=== PATIENT | female | born 1940 | race Caucasian/White ===

== ENCOUNTER 2017-10-25 21:42 | Inpatient (IN) | payer OTHER, MEDICARE ==
[~2017-10-25] VITALS: Ht 167.6 cm; Wt 103.0 kg
[2017-10-25 21:00] VITALS: BP 177/71
--- NOTE | 2017-10-25 22:14 | NUR ---
PT BIBFAMILY C/O MIDSTERNAL CP X COUPLE HRS W/ HIGH SBP 180 X FEW DAYS. PT AOX3 TRINIDADIAN SPEAKING, RR EVEN AND UNLABORED NO SOB NOTED. NAD NOTED. NO NVD AT THIS TIME. PT NOT DIAPHORETIC. PT GOWNED AND PLACED ON MONITOR WAITING FOR MD VOGT.
--- NOTE | 2017-10-25 22:15 | NUR ---
DR. LUCAS AT BEDSIDE FOR EVAL.
--- NOTE | 2017-10-25 22:16 | NUR ---
called for tele bed
[2017-10-25] MEDS ORDERED: NITROGLYCERIN 0.4 MG/TAB BOTTLE ONE (22:17)
[2017-10-25] MEDS ORDERED: ASPIRIN 325 MG TABLET ONE (22:18)
--- NOTE | 2017-10-25 22:25 | NUR ---
2ND TAB NITRO SL GIVEN FOR CP, BP 175/78 HR 58
[2017-10-25] MEDS ORDERED: NITROGLYCERIN 0.4 MG/TAB BOTTLE SL ONE (22:30)
[2017-10-25] MEDS ORDERED: ASPIRIN 325 MG TABLET PO ONE (22:30)
--- NOTE | 2017-10-25 22:30 | NUR ---
3RD TAB NITRO SL GIVEN FOR CP, BP 160/69 HR 60
[2017-10-25 22:31] LABS: BASOPHILS % (AUTO) 0.1 % (0.0-2.0); EOSINOPHILS % (AUTO) 0.8 % (0.0-6.0); HEMATOCRIT 36 % (33-45); HEMOGLOBIN 12.1 g/dL (11.5-14.8); LYMPHOCYTES # (AUTO) 1.4 /CMM (0.8-4.8); LYMPHOCYTES % (AUTO) 28.3 % (20.0-44.0); MEAN CORPUSCULAR HEMOGLOBIN 31 PG (26.0-33.0); MEAN CORPUSCULAR HGB CONC 34 g/dl (31.0-36.0); MEAN CORPUSCULAR VOLUME 92 fL (82-100); MONOCYTES # (AUTO) 0.2 /CMM (0.1-1.30); MONOCYTES % (AUTO) 4.7 % (2.0-12.0); NEUTROPHILS # (AUTO) 3.4 /CMM (1.8-8.9); NEUTROPHILS % (AUTO) 66.1 % (43.0-81.0); PLATELET COUNT (AUTO) 208 /CMM (150-450); RDW COEFFICIENT OF VARIATION 13.9 (11.5-15.0); WHITE BLOOD COUNT (AUTO) 5.1 K/uL (4.3-11.0)
--- NOTE | 2017-10-25 22:35 | NUR ---
RADIOLOGY AT BEDSIDE FOR CXR
[2017-10-25 22:46] LABS: INR 1.04 (0.87-1.13); PROTHROMBIN TIME 10.8 SECS (9.5-12.7)
[2017-10-25 22:47] LABS: CALCIUM, SERUM 9.1 mg/dL (8.5-10.1); CARBON DIOXIDE 25 mmol/L (21-32); CHLORIDE 108 mmol/L (98-107); CREATININE 0.9 mg/dL (0.6-1.3); GLUCOSE 150 mg/dL (74-106); POTASSIUM 4.2 mmol/L (3.5-5.1); SODIUM SERUM 141 mmol/L (136-145); UREA NITROGEN, BLOOD 21 mg/dL (7-18)
[2017-10-25] MEDS ORDERED: ONDANSETRON HCL/PF 4 MG/2 ML VIAL ONE (22:49)
[2017-10-25 22:53] LABS: TROPONIN I 0.231 ng/mL (0.00-0.056)
--- NOTE | 2017-10-25 22:58 | NUR ---
PAGED DR MUSA, DIABETES MANAGER PANEL.
[2017-10-25] MEDS ORDERED: MORPHINE SULFATE INJ 4 MG/ML DISP.SYRIN ONE (22:59)
[2017-10-25] MEDS ORDERED: MORPHINE SULFATE INJ 4 MG/ML DISP.SYRIN IV ONE (23:00)
[2017-10-25] MEDS ORDERED: ONDANSETRON HCL/PF 4 MG/2 ML VIAL IV ONE (23:00)
--- NOTE | 2017-10-25 23:02 | NUR ---
RECEIVED IV MEDICATION MORPHONE 4 MG FROM JOSE PYXIS REMOVED BY RN KE KIM. DR LUCAS AWARE 6MG MORPHINE NOT AVAILABLE AT THIS TIME. PER DR. LUCAS TO GIVE IVP MORPHINE 4MG D/T LIMITED QUANTITY.
--- NOTE | 2017-10-25 23:17 | NUR ---
PT STATES NO CHEST PAIN AT THIS TIME.
--- NOTE | 2017-10-25 23:23 | NUR ---
REPORT GIVEN TO MERRICK CARRASCO. UNABLE TO INPUT MED RECON AT THIS TIME. ENDORSED TO ADMITTING RN.
[2017-10-25 23:30] VITALS: BP 177/71
[2017-10-25] MEDS ORDERED: ASPIRIN 81 MG TAB.CHEW PO SCH (23:30)
[2017-10-25] MEDS ORDERED: ONDANSETRON HCL/PF 4 MG/2 ML VIAL IVP PRN (23:30)
[2017-10-25] MEDS: METOPROLOL TARTRATE 25 MG TABLET PO SCH (23:30)
[2017-10-25] MEDS ORDERED: NITROGLYCERIN 0.4 MG/TAB BOTTLE SL PRN (23:30)
[2017-10-25] MEDS ORDERED: MORPHINE SULFATE INJ 2 MG/ML DISP.SYRIN IV PRN (23:30)
--- NOTE | 2017-10-25 23:30 | NUR ---
TELE/RN NOTES PT RECEIVED TO UNIT FROM ER VIA SUSI. PLACE ON 2L O2 VIA NC, BREATHING EVEN AND UNLABORED. DENIES CHEST PAIN AT THIS TIME. DAUGHTER HENRRY (HOME) [phone] (CELL) [phone] AND FAMILY FRIEND IVAN [phone] AT BEDSIDE. IV TO LAC PATENT AND INTACT. CITIZEN OF [place] AND [place]/SOME [place] SPEAKING. ORIENTED PT TO ROOM AND CALL LIGHT. SIDE RAILS UPX2. BED IN LOW/LOCKED POSITION AND CALL LIGHT IN REACH. PLACED ON TELE MONITOR, SHOWS ARRHYTHMIA HR IN 50'S. AWARE. WILL CONTINUE TO MONITOR
--- NOTE | 2017-10-25 23:35 | NUR ---
PT TRASNFERRED PER ACLS PROTOCOL TO TELE BED 307-2
[2017-10-25 23:40] VITALS: BP 163/49
[2017-10-26] MEDS ORDERED: LOSARTAN POTASSIUM 50 MG TABLET PO SCH
[2017-10-26] MEDS ORDERED: DEXTROSE 50%-WATER 50 ML DISP.SYRIN IV PRN
[2017-10-26] MEDS ORDERED: *INSULIN REGULAR(HUMULIN R)HUM 100 UNIT/ML VIAL SQ PRN
--- NOTE | 2017-10-26 | NUR ---
TELE/RN NOTES DR. MUSA AT BEDSIDE TO ASSESS PT. ORDERED DIGOXIN LEVEL WITH AM LABS. INFORMED HIM THAT PT RECEIVED ASA 325MG IN ER, ASKED IF HE WANTED TO GIVE THE SCHEDULED DOSE OF ASA 81MG TONIGHT, HE SAID NO. ALSO REVIEWED LIST OF HOME MEDICATIONS PT PROVIDED ON PAPER, HE SAID HE WOULD COMPLETE THE MED RECON ONCE INPUTTED ON THE COMPUTER. DOES NOT WANT TO BE NOTIFIED ONCE IT HAS BEEN ENTERED, HE WILL CHECK IT LATER.
[2017-10-26] MEDS ORDERED: ALEN35TA5 PO (00:56)
[2017-10-26] MEDS ORDERED: GABA600T2 PO (00:56)
[2017-10-26] MEDS ORDERED: TRAZ-144 PO (00:56)
[2017-10-26] MEDS ORDERED: DIGO250T PO (00:56)
[2017-10-26] MEDS ORDERED: ZOLP10TA6 PO (00:56)
[2017-10-26] MEDS ORDERED: RIVA10TA PO (00:56)
[2017-10-26] MEDS ORDERED: VALS1TAB52 PO (00:56)
[2017-10-26] MEDS ORDERED: ICOS1CAP PO (00:56)
[2017-10-26] MEDS ORDERED: METH10TA7 PO (00:56)
[2017-10-26] MEDS ORDERED: DIAZ2TAB PO (00:56)
[2017-10-26] MEDS ORDERED: GLIM1TAB2 PO (00:56)
[2017-10-26] MEDS ORDERED: ERGO500047 PO (00:56)
[2017-10-26 01:00] VITALS: BP 124/55
[2017-10-26] MEDS ORDERED: ZOLPIDEM TARTRATE 5 MG TABLET ONE (01:04)
[2017-10-26] MEDS: ZOLPIDEM TARTRATE 5 MG TABLET PO PRN ×2 (01:05→23:10)
--- NOTE | 2017-10-26 01:08 | NUR ---
TELE/RN NOTES UPON ADMISSION, PT'S BP= 177/71, HR=62; RECHECKED FO=243/49 RECHECKED AGAIN AT 0100, BP CAME DOWN TO 124/55, PULSE=56
[2017-10-26 04:00] VITALS: BP_SYST 148; BP_DIAS 71; BP_DIAS 79
[2017-10-26 06:39] LABS: BASOPHILS % (AUTO) 0.5 % (0.0-2.0); EOSINOPHILS # (AUTO) 0.1 /CMM (0.0-0.7); EOSINOPHILS % (AUTO) 1.3 % (0.0-6.0); HEMATOCRIT 32 % (33-45); HEMOGLOBIN 10.7 g/dL (11.5-14.8); LYMPHOCYTES # (AUTO) 1.8 /CMM (0.8-4.8); LYMPHOCYTES % (AUTO) 40.9 % (20.0-44.0); MEAN CORPUSCULAR HEMOGLOBIN 31 PG (26.0-33.0); MEAN CORPUSCULAR HGB CONC 34 g/dl (31.0-36.0); MEAN CORPUSCULAR VOLUME 94 fL (82-100); MONOCYTES # (AUTO) 0.3 /CMM (0.1-1.30); MONOCYTES % (AUTO) 5.8 % (2.0-12.0); NEUTROPHILS # (AUTO) 2.3 /CMM (1.8-8.9); NEUTROPHILS % (AUTO) 51.5 % (43.0-81.0); PLATELET COUNT (AUTO) 167 /CMM (150-450); RDW COEFFICIENT OF VARIATION 13.8 (11.5-15.0); RED BLOOD CELL COUNT(AUTO) 3.43 MIL/uL (4.0-5.2); WHITE BLOOD COUNT (AUTO) 4.4 K/uL (4.3-11.0)
[2017-10-26 06:45] LABS: CHOLESTEROL 204 mg/dL (<200); HDL CHOLESTEROL 34 mg/dL (40-60); LDL 109 mg/dL (0-99); TRIGLYCERIDES 302 mg/dL (30-150)
[2017-10-26 06:46] LABS: TROPONIN I 0.241 ng/mL (0.00-0.056)
[2017-10-26] MEDS: BLOOD SUGAR DIAGNOSTIC 1 EACH STRIP VI SCH ×4 (06:56→22:24)
[2017-10-26 06:59] LABS: CALCIUM, SERUM 8.5 mg/dL (8.5-10.1); CARBON DIOXIDE 23 mmol/L (21-32); CHLORIDE 110 mmol/L (98-107); CREATININE 0.9 mg/dL (0.6-1.3); GLUCOSE 127 mg/dL (74-106); MAGNESIUM 1.6 mg/dL (1.8-2.4); PHOSPHORUS 4.2 mg/dL (2.5-4.9); SODIUM SERUM 143 mmol/L (136-145); UREA NITROGEN, BLOOD 17 mg/dL (7-18)
[2017-10-26] MEDS ORDERED: MORPHINE SULFATE INJ 10 MG/ML DISP.SYRIN IV PRN (07:30)
--- NOTE | 2017-10-26 07:31 | NUR ---
TELE/RN CLOSING NOTES PT AWAKE, RESTING COMFORTABLY IN BED. A/OX4. ON 2L O2 VIA NC, BREATHING EVEN AND UNLABORED. DENIES CHEST PAIN AT THIS TIME. ON TELE MONITOR SHOWING SINUS KRYSTEN, 40-50'S. IV TO LAC PATENT AND INTACT. NO SIGNIFICANT CHANGES OVERNIGHT. MADE PT COMFORTABLE DURING SHIFT. CHECKED BLOOD SUGAR THIS TIBWLOW=121, NO INSULIN COVERAGE AT THIS TIME, BREAKFAST TRAY WILL BE HELD UNTIL SEEN BY DR. DEUTSCH. ENDORSED TO AM SHIFT TO ADMINISTER INSULIN IF PT WILL HAVE BREAKFAST. BED IN LOW/LOCKED POSITION, CALL LIGHT IN REACH. SIDE RAILS UPX2. ENDORSED TO AM SHIFT ARIEL.
[2017-10-26 07:42] LABS: THYROID STIMULATING HORMONE 0.908 uIU/mL (0.358-3.74)
[2017-10-26 08:00] VITALS: BP 154/67
--- NOTE | 2017-10-26 08:00 | NUR ---
TELE/RN AM NOTES PT ALERT,AWAKE AND VERBALLY RESPONSIVE.BREATHING EVEN AND UNLABORED ON ROOM AIR. DENIES CHEST PAIN AT THIS TIME. IV TO LAC PATENT AND INTACT. GRE[place]DIAN/SOME [place] SPEAKING. WITH BRP WITH SLOW,STEADY GAIT.BED IN LOW/LOCKED POSITION AND CALL LIGHT IN REACH. PLACED ON TELE MONITOR, SHOWS SR SB HR IN 50-60'S. MD AWARE. WILL CONTINUE TO MONITOR
[2017-10-26] MEDS ORDERED: ASPIRIN 81 MG TAB.CHEW PO SCH (09:00)
[2017-10-26] MEDS ORDERED: VALSARTAN 80 MG TABLET PO SCH (09:00)
[2017-10-26] MEDS: Magnesium 1GM/D5W 100ML PREMIX 100 ML IV SCH ×2 (09:49→11:21)
[2017-10-26] MEDS: METOPROLOL TARTRATE 25 MG TABLET PO SCH ×2 (09:54→17:35)
--- NOTE | 2017-10-26 10:52 | NUR ---
pt refused insulin saying she doesn't eat that much inspite of teaching and explanations.
[2017-10-26] MEDS: INSULIN REGULAR, HUMAN 100 UNIT/ML 3 ML VIAL SQ PRN ×2 (11:59→17:41)
[2017-10-26 12:00] VITALS: BP 155/67
[2017-10-26 16:00] VITALS: BP 152/82
--- NOTE | 2017-10-26 17:55 | NUR ---
PT IS SCHEDULED FOR CARDIAC CATH AT [facility] TOMORROW AT 1600.[facility] INTERN TIME AT 1300.PT MADE AWARE.PT'S DAUGHTER,BILLY ARRIVED AND REFUSED TO HAVE HER MOM'S CARDIAC CATH BE DONE AT [facility] SAYING MANY PT'S IN THAT HOSPITAL(10 PTS SHE KNEW DIES IN [facility]).CALLED DR SALES (CARDIO) AND SPOKE TO EFRAIN AND MADE AWARE OF BILLY'S REFUSAL.DR SALES SPOKE TO BILLY(DTR) AND BILLY STATED THAT DR SALES FINALLY AGREED TO HAVE THE CARDIAC CATH PROCEDURE TO BE DONE IN [facility] WHERE DR SALES HAS PRIVILEGES.SPOKE TO [employer] WHO WILL ARRANGE TRANSPORTATION.
--- NOTE | 2017-10-26 18:02 | NUR ---
FOLLOW UP MADE TO MOHAN OWENS MGR WHO STATED THAT DR SALES DOESN'T HAVE PRIVILEGES IN [facility] AND ALSO PT'S INSURANCE,[employer] CARE HAS TO BE THE ONE TO DECIDE WHERE THE PT IS GOING TO FOR CARDIAC CATH PROCEDURE.
--- NOTE | 2017-10-26 19:30 | NUR ---
RN NOTES RECEIVED PATIENT IN BED ASLEEP, AROUSABLE. PATIENT CONFUSED; DOES NOT ARTICULATE WORDS. NO ACUTE DISTRESS NOTED. NO SIGNS OF PAIN NOTED. IV SITE PATENT, INTACT; IVF INFUSING ORDERED. LEFT SHOULDER AND ARM KEPT IMMOBILIZED MUCH POSSIBLE. ON LOW BED WITH BILATERAL UPPER SIDE RAILS UP. BED ALARM ON. WILL CONTINUE TO MONITOR.
[2017-10-26 20:00] VITALS: BP 148/67
--- NOTE | 2017-10-26 22:09 | NUR ---
RN NOTES DR. MUSA MADE AWARE OF PATIENT'S BACK PAIN 08/07 WITH NEW ORDER FOR TRAMADOL 50 MG PO ID PRN, NOTED AND CARRIED OUT.
[2017-10-26] MEDS ORDERED: TRAMADOL HCL 50 MG TABLET ONE (22:14)
[2017-10-26] MEDS ORDERED: TRAMADOL HCL 50 MG TABLET PO PRN (22:30)
[2017-10-27] VITALS: BP 146/61
--- NOTE | 2017-10-27 00:45 | NUR ---
RN NOTES PATIENT INFORMED STAFF THAT SHE WANTS TO LEAVE AMA. RN AND CHARGE NURSE EDUCATED PATIENT ON RISKS OF LEAVING AMA AND THE BENEFIT TO STAYING IN FACILITY. PATIENT STILL DECIDED TO LEAVE AMA. PATIENT'S DAUGHTER BILLY IN FACILITY TO JEWELRY POLISHER PATIENT. PATIENT SIGNED AMA FORM AND INVENTORY FORM. NO ACUTE DISTRESS NOTED. DENIES ANY PAIN AT THIS TIME.
--- NOTE | 2017-10-27 01:00 | NUR ---
RN NOTES DR. MUSA NOTIFIED OF PATIENT LEAVING AMA.
== END 2017-10-27 00:45 | disposition left against medical advice (07) | DRG 190 ==
LOC: ER 21:44 → TELE 23:05
PROVIDERS: ADMIT Internal Medicine; ATTEND Internal Medicine
DX: I21.4 Non-ST elevation (NSTEMI) myocardial infarction (principal); I50.31 Acute diastolic (congestive) heart failure; D68.59 Other primary thrombophilia; E83.42 Hypomagnesemia; E05.90 Thyrotoxicosis, unspecified without thyrotoxic crisis or storm; I48.0 Paroxysmal atrial fibrillation; I11.0 Hypertensive heart disease with heart failure; I25.10 Atherosclerotic heart disease of native coronary artery without angina pectoris; E11.9 Type 2 diabetes mellitus without complications; E78.5 Hyperlipidemia, unspecified; D64.9 Anemia, unspecified; I16.0 Hypertensive urgency; Z79.01 Long term (current) use of anticoagulants; Z79.4 Long term (current) use of insulin
CPT/HCPCS: 36415; 71010-TC; 80048-TC; 80061-TC; 80162-TC; 82962-TC; 83735-TC; 84100-TC; 84443-TC; 84484-TC; 85025-TC; 85730-TC; 87081-TC; 93307-TC; A4606; J1815; J2270; J2405; J3475; Z7610

== ENCOUNTER 2018-04-04 13:35 | Emergency (ER) | payer MEDICARE, OTHER ==
[~2018-04-04] VITALS: Ht 167.6 cm; Wt 113.4 kg
[2018-04-04 13:35] VITALS: BP 163/83
[~2018-04-04 13:35] MED LIST: ALEN35TA5 PO; DIAZ2TAB PO; DIGO250T PO; ERGO500040 PO; GABA600T2 PO; GLIM1TAB2 PO; ICOS1CAP PO; METH10TA7 PO; RIVA10TA PO; TRAZ-182 PO; VALS1TAB52 PO; ZOLP10TA6 PO
[2018-04-04] MEDS ORDERED: HYDROCODONE/APAP 5/325MG 1 EACH TABLET ONE (14:51)
[2018-04-04] MEDS: HYDROCODONE/APAP 5/325MG 1 EACH TABLET PO ONE (14:53)
[2018-04-04] MEDS ORDERED: ASPIRIN EC 81 MG TABLET.DR PO ONE (18:00)
== END 2018-04-04 15:45 | disposition home or self-care (01) ==
LOC: ER 13:45
DX: S83.8X1A Sprain of other specified parts of right knee, initial encounter (principal); I10 Essential (primary) hypertension; E11.51 Type 2 diabetes mellitus with diabetic peripheral angiopathy without gangrene; Z96.651 Presence of right artificial knee joint; Z95.5 Presence of coronary angioplasty implant and graft; Z79.02 Long term (current) use of antithrombotics/antiplatelets; Z90.89 Acquired absence of other organs; Z90.710 Acquired absence of both cervix and uterus; X50.1XXA Overexertion from prolonged static or awkward postures, initial encounter; Y93.89 Activity, other specified; Y92.89 Other specified places as the place of occurrence of the external cause; Y99.8 Other external cause status
CPT/HCPCS: 73564-TC; A4606; Z7610

== ENCOUNTER 2019-09-21 00:24 | Emergency (ER) | payer MEDICARE, MEDICAID ==
[~2019-09-21] VITALS: Ht 167.6 cm; Wt 95.3 kg
[~2019-09-21 00:24] MED LIST changes: +ALEN35TA21 PO; -ALEN35TA5 PO; +GABA600T12 PO; -GABA600T2 PO; -GLIM1TAB2 PO; +GLIM1TAB3 PO
[2019-09-21 00:25] VITALS: BP 174/67
--- NOTE | 2019-09-21 01:50 | NUR ---
Patient discharged to home in stable condition. Written and verbal after care instructions given. Patient verbalizes understanding of instruction. Pt ambulatory with a steady gait
== END 2019-09-21 01:50 | disposition home or self-care (01) ==
LOC: ER 00:24
DX: L02.31 Cutaneous abscess of buttock (principal); I10 Essential (primary) hypertension; E11.9 Type 2 diabetes mellitus without complications; Z90.89 Acquired absence of other organs; Z98.890 Other specified postprocedural states; Z90.710 Acquired absence of both cervix and uterus; Z95.818 Presence of other cardiac implants and grafts; Z79.899 Other long term (current) drug therapy

== ENCOUNTER 2024-12-05 16:57 | Inpatient (IN) | payer MEDICARE, OTHER ==
[~2024-12-05] VITALS: Ht 165.1 cm; Wt 70.3 kg
[~2024-12-05 16:57] MED LIST changes: -ALEN35TA21 PO; +ALEN35TA51 PO; +GLIM1TAB18 PO; -GLIM1TAB3 PO; -VALS1TAB52 PO; +VALS1TAB7 PO
[2024-12-05] MEDS ORDERED: DILTIAZEM HCL 25 MG IV ONE (17:22)
[2024-12-05] MEDS: IV NS 0.9% 1,000 ML BAG IV ONE (17:30)
[2024-12-05 17:47] LABS: BASOPHILS % (AUTO) 0.4 % (0.0-2.0); EOSINOPHILS # (AUTO) 0.1 K/uL (0.0-0.7); HEMATOCRIT 21 % (33-45); LYMPHOCYTES # (AUTO) 1.6 K/uL (0.8-4.8); MEAN CORPUSCULAR HEMOGLOBIN 34 PG (26.0-33.0); MEAN CORPUSCULAR HGB CONC 33 g/dl (31.0-36.0); MEAN CORPUSCULAR VOLUME 101 fL (82-100); MONOCYTES # (AUTO) 0.3 K/uL (0.1-1.30); MONOCYTES % (AUTO) 4.9 % (2.0-12.0); NEUTROPHILS # (AUTO) 3.5 K/uL (1.8-8.9); NEUTROPHILS % (AUTO) 63.7 % (43.0-81.0); PLATELET COUNT (AUTO) 206 K/uL (150-450); RED BLOOD CELL COUNT(AUTO) 2.08 MIL/uL (4.0-5.2); RED CELL DISTRIBUTION WIDTH 16.3 % (11.5-15.0); WHITE BLOOD COUNT (AUTO) 5.5 K/uL (4.3-11.0)
[2024-12-05 17:51] LABS: CALCIUM, SERUM 8.3 mg/dL (8.5-10.1); CARBON DIOXIDE 21 mmol/L (21-32); CHLORIDE 112 mmol/L (98-107); CREATININE 1.7 mg/dL (0.6-1.3); GLUCOSE 127 mg/dL (74-106); POTASSIUM 4.4 mmol/L (3.5-5.1); SODIUM SERUM 141 mmol/L (136-145)
[2024-12-05 17:53] LABS: INR 0.97 (0.91-1.10); PARTIAL THROMBOPLASTIN TIME 26.1 SEC (24.3-34.3); PROTHROMBIN TIME 10.3 SECS (9.2-11.1); UREA NITROGEN, BLOOD 81 mg/dL (7-18)
[2024-12-05 18:04] LABS: ALANINE AMINOTRANSFERASE 41 U/L (12-78); ALBUMIN 2.2 g/dL (3.4-5.0); ALKALINE PHOSPHATASE 64 U/L (46-116); ASPARTATE AMINOTRANSFERASE 40 U/L (15-37); BILIRUBIN,DIRECT 0.1 mg/dL (0.0-0.2); BILIRUBIN,TOTAL 0.2 mg/dL (0.2-1.0); NT-PRO BNP 6854 pg/mL (0-125); TOTAL PROTEIN, SERUM 5.7 g/dL (6.4-8.2)
[2024-12-05] MEDS: DILTIAZEM HCL 25 MG IV IV ONE (18:17)
[2024-12-05] MEDS ORDERED: PANTOPRAZOLE 40 MG VIAL ONE (18:19)
[2024-12-05] MEDS: PANTOPRAZOLE 40 MG VIAL IV ONE (18:23)
[2024-12-05] MEDS ORDERED: ONDANSETRON HCL/PF 4 MG/2 ML VIAL IVP PRN (18:30)
[2024-12-05] MEDS ORDERED: MAG HYDROX/AL HYDROX/SIMETH 30 ML UDC PO PRN (18:30)
[2024-12-05] MEDS ORDERED: Z GUARD REMEDY 4 OZ OINT TP PRN (18:30)
[2024-12-05] MEDS ORDERED: MAGNESIUM HYDROXIDE 30 ML UDC PO PRN (18:30)
[2024-12-05] MEDS: IV LR 500 ML IV ONE (19:00)
[2024-12-05] MEDS: PANTOPRAZOLE 40 MG VIAL IV SCH (19:00)
[2024-12-05 19:04] LABS: ANISOCYTOSIS 1+; EOSINOPHILS % (MANUAL) 1 % (0-4); LYMPHOCYTES % (MANUAL) 40 % (16-48); MONOCYTES % (MANUAL) 2 % (0-11.0); NEUTROPHILS % (MANUAL) 57 (42-76); PLATELET ESTIMATE ADEQUATE
[2024-12-05] MEDS ORDERED: NOREPINEPHRINE 32 MG in IV NS 0.9% 218 ML IV PRN (19:30)
[2024-12-05] MEDS: PHENYLEPHRINE 100 MG in IV NS 0.9% 240 ML IV PRN (20:52)
[2024-12-05] MEDS: TRAZODONE 50 MG TABLET PO SCH (22:00)
[2024-12-05] MEDS ORDERED: TRAZODONE 50 MG TABLET ONE (23:48)
[2024-12-06] VITALS (62 sets, daily range): BP systolic 69–140; BP diastolic 33–100; TEMP 98.4–98.5; O2SAT 95–100
[2024-12-06] MEDS: LOSARTAN POTASSIUM 50 MG TABLET PO SCH (09:00)
[2024-12-06] MEDS: DIGOXIN 0.25 MG TABLET PO SCH (09:34)
[2024-12-06 09:37] LABS: BASOPHILS % (AUTO) 0.6 % (0.0-2.0); EOSINOPHILS # (AUTO) 0.1 K/uL (0.0-0.7); EOSINOPHILS % (AUTO) 1.4 % (0.0-6.0); HEMATOCRIT 22 % (33-45); HEMOGLOBIN 7.4 g/dL (11.5-14.8); LYMPHOCYTES # (AUTO) 2.8 K/uL (0.8-4.8); LYMPHOCYTES % (AUTO) 37.4 % (20.0-44.0); MEAN CORPUSCULAR HEMOGLOBIN 34 PG (26.0-33.0); MEAN CORPUSCULAR HGB CONC 34 g/dl (31.0-36.0); MEAN CORPUSCULAR VOLUME 100 fL (82-100); MONOCYTES # (AUTO) 0.5 K/uL (0.1-1.30); NEUTROPHILS # (AUTO) 4.1 K/uL (1.8-8.9); NEUTROPHILS % (AUTO) 54.6 % (43.0-81.0); PLATELET COUNT (AUTO) 242 K/uL (150-450); RED BLOOD CELL COUNT(AUTO) 2.19 MIL/uL (4.0-5.2); RED CELL DISTRIBUTION WIDTH 16.5 % (11.5-15.0); WHITE BLOOD COUNT (AUTO) 7.6 K/uL (4.3-11.0)
[2024-12-06 09:48] LABS: CALCIUM, SERUM 8.6 mg/dL (8.5-10.1); CREATININE 1.3 mg/dL (0.6-1.3); MAGNESIUM 2.5 mg/dL (1.8-2.4); PHOSPHORUS 4.2 mg/dL (2.5-4.9); POTASSIUM 4.6 mmol/L (3.5-5.1)
[2024-12-06] MEDS: IV NS 0.9% 1,000 ML IV SCH (10:23)
[2024-12-06] MEDS: GABAPENTIN 300 MG CAPSULE PO SCH (17:23)
[2024-12-06 17:47] LABS: CREATININE, URINE 39.9 MG/DL (30.0-125.0); URINE TOTAL PROTEIN 14.5 mg/dL (0-11.9)
[2024-12-06] MEDS: (Icosapent Ethyl (Vascepa) 1 GM) PO SCH (18:34)
[2024-12-06 19:59] LABS: APPEARANCE,URINE CLEAR (CLEAR); BILIRUBIN,URINE NEGATIVE (NEGATIVE); BLOOD, URINE NEGATIVE Ery/uL (NEGATIVE); COLOR,URINE YELLOW (YELLOW); KETONES,URINE NEGATIVE (NEGATIVE); LEUKOCYTE ESTERASE ,URINE NEGATIVE (NEGATIVE); NITRITE, URINE NEGATIVE (NEGATIVE); PH,URINE 5.5 (5.0-8.0); PROTEIN,URINE NEGATIVE (NEGATIVE); UGLUCOSE NEGATIVE (NEGATIVE); UROBILINOGEN,URINE 0.2 EU/dL (0.2)
[2024-12-06 21:08] LABS: EOSINOPHIL,URINE None Seen
[2024-12-07] VITALS (50 sets, daily range): BP systolic 96–150; BP diastolic 40–97; TEMP 97.6–98.8; O2SAT 94–100
[2024-12-07 04:42] LABS: BASOPHILS % (AUTO) 0.4 % (0.0-2.0); EOSINOPHILS # (AUTO) 0.1 K/uL (0.0-0.7); EOSINOPHILS % (AUTO) 1.6 % (0.0-6.0); HEMATOCRIT 22 % (33-45); LYMPHOCYTES # (AUTO) 2.5 K/uL (0.8-4.8); MEAN CORPUSCULAR HEMOGLOBIN 34 PG (26.0-33.0); MEAN CORPUSCULAR HGB CONC 32 g/dl (31.0-36.0); MEAN CORPUSCULAR VOLUME 105 fL (82-100); MONOCYTES # (AUTO) 0.4 K/uL (0.1-1.30); MONOCYTES % (AUTO) 6.3 % (2.0-12.0); NEUTROPHILS # (AUTO) 3.6 K/uL (1.8-8.9); NEUTROPHILS % (AUTO) 53.7 % (43.0-81.0); PLATELET COUNT (AUTO) 223 K/uL (150-450); RED BLOOD CELL COUNT(AUTO) 2.08 MIL/uL (4.0-5.2); RED CELL DISTRIBUTION WIDTH 16.8 % (11.5-15.0); WHITE BLOOD COUNT (AUTO) 6.7 K/uL (4.3-11.0)
[2024-12-07 04:55] LABS: ALBUMIN 2.4 g/dL (3.4-5.0); BILIRUBIN,TOTAL 0.3 mg/dL (0.2-1.0); CALCIUM, SERUM 8.1 mg/dL (8.5-10.1); CREATININE 1.1 mg/dL (0.6-1.3); MAGNESIUM 2.2 mg/dL (1.8-2.4); PHOSPHORUS 3.4 mg/dL (2.5-4.9); TOTAL PROTEIN, SERUM 5.4 g/dL (6.4-8.2)
[2024-12-07 06:08] LABS: BASOPHILS % (MANUAL) 0 % (0.0-2.0); EOSINOPHILS % (MANUAL) 2 % (0-4); LYMPHOCYTES % (MANUAL) 31 % (16-48); MONOCYTES % (MANUAL) 7 % (0-11.0); NEUTROPHILS % (MANUAL) 60 (42-76); PLATELET ESTIMATE ADEQUATE
[2024-12-07 06:09] LABS: ANISOCYTOSIS 1+
[2024-12-07] MEDS: POLYETHYLENE GLYCOL 3350 17 GM POWD.PACK PO SCH (12:20)
[2024-12-07] MEDS: FUROSEMIDE 20 MG/2 ML VIAL IV SCH (13:09)
[2024-12-07] MEDS: AMIODARONE 150 MG in IV D5W 100 ML IV ONE (13:11)
[2024-12-07] MEDS: AMIODARONE 450 MG in IV D5W 241 ML IV PRN (14:10)
[2024-12-07 15:13] LABS: OCCULT BLOOD STOOL POSITIVE (NEGATIVE)
[2024-12-07] MEDS: PANTOPRAZOLE 40 MG TABLET.DR PO SCH (21:17)
[2024-12-07] MEDS: ZOLPIDEM TARTRATE 5 MG TABLET PO PRN (21:17)
[2024-12-08] VITALS (58 sets, daily range): BP systolic 97–152; BP diastolic 32–97; TEMP 97.9–98.9; O2SAT 97–100
[2024-12-08 04:50] LABS: BASOPHILS % (AUTO) 0.4 % (0.0-2.0); EOSINOPHILS # (AUTO) 0.2 K/uL (0.0-0.7); EOSINOPHILS % (AUTO) 2.6 % (0.0-6.0); HEMATOCRIT 25 % (33-45); HEMOGLOBIN 8.2 g/dL (11.5-14.8); LYMPHOCYTES # (AUTO) 2.3 K/uL (0.8-4.8); LYMPHOCYTES % (AUTO) 36.6 % (20.0-44.0); MEAN CORPUSCULAR HEMOGLOBIN 33 PG (26.0-33.0); MEAN CORPUSCULAR HGB CONC 33 g/dl (31.0-36.0); MEAN CORPUSCULAR VOLUME 98 fL (82-100); MONOCYTES # (AUTO) 0.4 K/uL (0.1-1.30); MONOCYTES % (AUTO) 7.1 % (2.0-12.0); NEUTROPHILS # (AUTO) 3.3 K/uL (1.8-8.9); NEUTROPHILS % (AUTO) 53.3 % (43.0-81.0); PLATELET COUNT (AUTO) 204 K/uL (150-450); RED CELL DISTRIBUTION WIDTH 18.1 % (11.5-15.0); WHITE BLOOD COUNT (AUTO) 6.2 K/uL (4.3-11.0)
[2024-12-08 05:03] LABS: CALCIUM, SERUM 8.3 mg/dL (8.5-10.1); CREATININE 1.2 mg/dL (0.6-1.3); POTASSIUM 5.2 mmol/L (3.5-5.1)
[2024-12-08] MEDS ORDERED: IV NS 0.9% 1,000 ML IV PRN (08:19)
[2024-12-08] MEDS: ERGOCALCIFEROL (VITAMIN D 2) 50,000 UNIT CAPSULE PO SCH (09:42)
[2024-12-08] MEDS: METHIMAZOLE (5MG) 5 MG TABLET PO SCH (11:04)
[2024-12-08] MEDS: AMIODARONE HCL 200 MG TABLET PO SCH (11:04)
[2024-12-08 11:06] LABS: PTH, INTACT 31 pg/mL (15-65)
[2024-12-08 12:48] LABS: THYROID STIMULATING HORMONE 0.03 uIU/mL (0.358-3.74)
[2024-12-09] VITALS (24 sets, daily range): BP systolic 100–140; BP diastolic 29–78; TEMP 98.4–98.8; O2SAT 96–100
[2024-12-09 04:46] LABS: BASOPHILS % (AUTO) 0.5 % (0.0-2.0); EOSINOPHILS # (AUTO) 0.1 K/uL (0.0-0.7); EOSINOPHILS % (AUTO) 2.7 % (0.0-6.0); HEMATOCRIT 23 % (33-45); HEMOGLOBIN 7.7 g/dL (11.5-14.8); LYMPHOCYTES # (AUTO) 1.9 K/uL (0.8-4.8); LYMPHOCYTES % (AUTO) 36.2 % (20.0-44.0); MEAN CORPUSCULAR HEMOGLOBIN 33 PG (26.0-33.0); MEAN CORPUSCULAR HGB CONC 34 g/dl (31.0-36.0); MEAN CORPUSCULAR VOLUME 98 fL (82-100); MONOCYTES # (AUTO) 0.4 K/uL (0.1-1.30); NEUTROPHILS # (AUTO) 2.8 K/uL (1.8-8.9); NEUTROPHILS % (AUTO) 52.6 % (43.0-81.0); PLATELET COUNT (AUTO) 185 K/uL (150-450); RED BLOOD CELL COUNT(AUTO) 2.33 MIL/uL (4.0-5.2); RED CELL DISTRIBUTION WIDTH 17.6 % (11.5-15.0); WHITE BLOOD COUNT (AUTO) 5.3 K/uL (4.3-11.0)
[2024-12-09 05:03] LABS: CALCIUM, SERUM 7.7 mg/dL (8.5-10.1); CARBON DIOXIDE 20 mmol/L (21-32); CHLORIDE 115 mmol/L (98-107); CREATININE 1.2 mg/dL (0.6-1.3); GLUCOSE 99 mg/dL (74-106); POTASSIUM 5.5 mmol/L (3.5-5.1); SODIUM SERUM 143 mmol/L (136-145); UREA NITROGEN, BLOOD 43 mg/dL (7-18)
[2024-12-09] MEDS: SODIUM ZIRCONIUM CYCLOSILICATE 5 GM POWD.PACK PO SCH (09:00)
[2024-12-09] MEDS: Sodium Bicarbonate 100 MEQ in IV 1/2NS 1000 ML 1,000 ML IV SCH (10:41)
[2024-12-09 13:43] LABS: CALCIUM, SERUM 8.4 mg/dL (8.5-10.1); CREATININE 1.2 mg/dL (0.6-1.3); POTASSIUM 5.3 mmol/L (3.5-5.1)
[2024-12-09 15:14] LABS: CALCIUM, SERUM 8.2 mg/dL (8.5-10.1); POTASSIUM 5.3 mmol/L (3.5-5.1)
[2024-12-09] MEDS: FUROSEMIDE 20 MG/2 ML VIAL IV SCH (19:48)
[2024-12-10] VITALS (34 sets, daily range): BP systolic 104–140; BP diastolic 36–91; TEMP 98.2–98.7; O2SAT 96–99
[2024-12-10 04:46] LABS: BASOPHILS % (AUTO) 0.5 % (0.0-2.0); EOSINOPHILS # (AUTO) 0.1 K/uL (0.0-0.7); HEMATOCRIT 25 % (33-45); HEMOGLOBIN 8.6 g/dL (11.5-14.8); LYMPHOCYTES # (AUTO) 1.4 K/uL (0.8-4.8); LYMPHOCYTES % (AUTO) 26.1 % (20.0-44.0); MEAN CORPUSCULAR HEMOGLOBIN 33 PG (26.0-33.0); MEAN CORPUSCULAR HGB CONC 34 g/dl (31.0-36.0); MEAN CORPUSCULAR VOLUME 97 fL (82-100); MONOCYTES # (AUTO) 0.4 K/uL (0.1-1.30); MONOCYTES % (AUTO) 7.9 % (2.0-12.0); NEUTROPHILS # (AUTO) 3.5 K/uL (1.8-8.9); NEUTROPHILS % (AUTO) 63.5 % (43.0-81.0); PLATELET COUNT (AUTO) 192 K/uL (150-450); RED BLOOD CELL COUNT(AUTO) 2.58 MIL/uL (4.0-5.2); RED CELL DISTRIBUTION WIDTH 17.3 % (11.5-15.0); WHITE BLOOD COUNT (AUTO) 5.5 K/uL (4.3-11.0)
[2024-12-10 05:00] LABS: CALCIUM, SERUM 8.5 mg/dL (8.5-10.1); CREATININE 1.1 mg/dL (0.6-1.3); POTASSIUM 5.1 mmol/L (3.5-5.1)
[2024-12-10] MEDS ORDERED: ANESTHESIA TRAY IN PYXIS 1 EA TRAY MC ONE ×2 (15:18→20:27)
[2024-12-11] VITALS (19 sets, daily range): BP systolic 94–133; BP diastolic 38–96; TEMP 98.2–98.6; O2SAT 96–100
[2024-12-11 04:18] LABS: BASOPHILS % (AUTO) 0.6 % (0.0-2.0); EOSINOPHILS # (AUTO) 0.1 K/uL (0.0-0.7); HEMATOCRIT 23 % (33-45); HEMOGLOBIN 7.8 g/dL (11.5-14.8); LYMPHOCYTES # (AUTO) 1.5 K/uL (0.8-4.8); LYMPHOCYTES % (AUTO) 31.1 % (20.0-44.0); MEAN CORPUSCULAR HEMOGLOBIN 33 PG (26.0-33.0); MEAN CORPUSCULAR HGB CONC 34 g/dl (31.0-36.0); MEAN CORPUSCULAR VOLUME 97 fL (82-100); MONOCYTES # (AUTO) 0.4 K/uL (0.1-1.30); MONOCYTES % (AUTO) 7.9 % (2.0-12.0); NEUTROPHILS # (AUTO) 2.7 K/uL (1.8-8.9); NEUTROPHILS % (AUTO) 57.4 % (43.0-81.0); PLATELET COUNT (AUTO) 191 K/uL (150-450); RED BLOOD CELL COUNT(AUTO) 2.38 MIL/uL (4.0-5.2); RED CELL DISTRIBUTION WIDTH 16.8 % (11.5-15.0); WHITE BLOOD COUNT (AUTO) 4.8 K/uL (4.3-11.0)
[2024-12-11] MEDS: ACETAMINOPHEN 325 MG TABLET PO PRN (10:07)
[2024-12-11] MEDS ORDERED: METOPROLOL TARTRATE 25 MG TABLET PO SCH (21:00)
[2024-12-12 08:10] LABS: *SPE A/G RATIO 1.4 (0.7-1.7); *SPE ALBUMIN 2.7 g/dL (2.9-4.4); *SPE ALPHA-1-GLOBULIN 0.2 g/dL (0.0-0.4); *SPE ALPHA-2-GLOBULIN 0.7 g/dL (0.4-1.0); *SPE BETA GLOBULIN 0.8 g/dL (0.7-1.3); *SPE M-SPIKE Not Observed g/dL (Not Observed); *SPE PROTEIN TOTAL 4.7 g/dL (6.0-8.5); *SPEGAMMA GLOBULIN 0.3 g/dL (0.4-1.8)
== END 2024-12-11 18:34 | disposition left against medical advice (07) | DRG 280 ==
LOC: ER 17:05 → OBSER 12-06 02:11 → ICU 12-06 05:36 → TELE1 12-11 15:32 → TELE-TD 12-11 15:38
PROVIDERS: ADMIT Nurse Practitioner Acute Care; ATTEND Nurse Practitioner Acute Care
PROC: 02HV33Z Insertion of Infusion Device into Superior Vena Cava, Percutaneous Approach (ICD-10-PCS; 2024-12-05)
PROC: B548ZZA Ultrasonography of Superior Vena Cava, Guidance (ICD-10-PCS; 2024-12-05)
PROC: 30233N1 Transfusion of Nonautologous Red Blood Cells into Peripheral Vein, Percutaneous Approach (ICD-10-PCS; 2024-12-07)
PROC: 0DB68ZX Excision of Stomach, Via Natural or Artificial Opening Endoscopic, Diagnostic (ICD-10-PCS; principal; 2024-12-10)
DX: I48.0 Paroxysmal atrial fibrillation (principal); K29.71 Gastritis, unspecified, with bleeding; I21.A1 Myocardial infarction type 2; N17.0 Acute kidney failure with tubular necrosis; R57.1 Hypovolemic shock; E44.0 Moderate protein-calorie malnutrition; E87.0 Hyperosmolality and hypernatremia; E87.20 Acidosis, unspecified; I13.0 Hypertensive heart and chronic kidney disease with heart failure and stage 1 through stage 4 chronic kidney disease, or unspecified chronic kidney disease; I50.32 Chronic diastolic (congestive) heart failure; D62 Acute posthemorrhagic anemia; E05.90 Thyrotoxicosis, unspecified without thyrotoxic crisis or storm; E11.22 Type 2 diabetes mellitus with diabetic chronic kidney disease; E78.5 Hyperlipidemia, unspecified; E86.9 Volume depletion, unspecified; E87.5 Hyperkalemia; E88.09 Other disorders of plasma-protein metabolism, not elsewhere classified; I25.10 Atherosclerotic heart disease of native coronary artery without angina pectoris; I27.20 Pulmonary hypertension, unspecified; I25.2 Old myocardial infarction; K29.70 Gastritis, unspecified, without bleeding; M89.8X9 Other specified disorders of bone, unspecified site; N18.9 Chronic kidney disease, unspecified; K44.9 Diaphragmatic hernia without obstruction or gangrene; Z53.29 Procedure and treatment not carried out because of patient's decision for other reasons; Z79.84 Long term (current) use of oral hypoglycemic drugs; Z79.01 Long term (current) use of anticoagulants; Z87.11 Personal history of peptic ulcer disease; Z95.0 Presence of cardiac pacemaker; Z95.5 Presence of coronary angioplasty implant and graft; Z99.81 Dependence on supplemental oxygen
CPT/HCPCS: 36415; 71045-TC; 76770-TC; 80048-TC; 80053-TC; 80076-TC; 82272-TC; 82550-TC; 82570-TC; 82962-TC; 83605-TC; 83735-TC; 83880; 83970; 84100-TC; 84155; 84165; 84300-TC; 84439-TC; 84443-TC; 84484-TC; 85025-TC; 85730-TC; 86850-TC; 87040-TC; 87081-TC; 92526; 92611-TC; 93307-TC; A4223; G0378; J0282; J1940; J2470; J2704; J3490; J7030; J7040; J7050; J7060; J7120; P9016